=== PATIENT | female | born 1940 | race Caucasian/White ===

== ENCOUNTER → 2017-04-21 | Outpatient (CLI) | payer OTHER ==
[~2017-04-21] MED LIST: ADVIL,NUPRIN,M200 MG PO; AMOX TR-K CLV1 EAC4 PO; ASPIRIN E.C.81 M1 PO; Cipro PO; DITROPAN XL5 MG PO; DOXYCYCLINE HY100 MG PO; ERGOCALCIF50000 UNIT PO; HYDROCODON-ACE1 EAC7 PO; LAMICTAL100 MG PO; LANSOPRAZOLE30 MG PO; LEVOFLOXACIN750 MG PO; LISINOPRIL20 MG PO; METOCLOPRAMIDE10 MG PO; MOTRIN600 MG PO; OXYBUTYNIN CHLOR5 M1 PO; PAXIL40 MG PO; PLAVIX75 MG PO; PROTONIX40 MG PO; Paxil PO; SIMVASTATIN40 MG PO; Vicodin,Lortab 5/500 PO; ZESTRIL,PRINIVI10 M1 PO; Zocor PO
== END | disposition home or self-care (01) ==
LOC: NUC 07:30
DX: E05.20 Thyrotoxicosis with toxic multinodular goiter without thyrotoxic crisis or storm (principal)
CPT/HCPCS: 78014; 78999; A9516

== ENCOUNTER → 2017-06-23 | Outpatient (CLI) | payer OTHER | END | disposition home or self-care (01) | LOC: NUC 06-09 09:00 | PROC: DWY5GDZ Isotope Administration to Whole Body using Iodine 131 (I-131) (ICD-10-PCS; principal; 2017-06-23) | DX: E05.20 Thyrotoxicosis with toxic multinodular goiter without thyrotoxic crisis or storm (principal); R53.81 Other malaise; R53.83 Other fatigue | CPT/HCPCS: 79005; A9517 ==